=== PATIENT | male | born 1975 ===

== ENCOUNTER 2020-04-23 14:22 | Emergency (ER) | payer SELFPAY ==
[2020-04-23] MEDS ORDERED: Ketorolac Tromethamine 30 MG/ML VIAL ONE (16:46)
[2020-04-23] MEDS ORDERED: Metoclopramide HCl 10 MG TAB ONE (16:46)
[2020-04-23] MEDS ORDERED: diphenhydrAMINE 25 MG CAP ONE (16:46)
--- NOTE | 2020-04-23 17:24 | CT ---
CT OF BRAIN PERFORMED WITHOUT CONTRAST ENHANCEMENT: 04/23/20 HISTORY: Right sided headache x3 months. The ventricular and cisternal system is within normal limits. There is no signs of intracerebral hemo rrhage or extra-axial fluid collections. Mastoid air cells are clear. Partial visualization of some d eformity along the right orbit may represent an old orbital wall fracture. IMPRESSION: 1. No acute intracranial abnormalities. 2. Probable old orbital floor fracture on the right. POS: KEN
== END 2020-04-23 17:14 | disposition home or self-care (01) ==
LOC: ERS 14:22
DX: R51.9 Headache, unspecified (principal); R29.700 NIHSS score 0; Z87.891 Personal history of nicotine dependence
CPT/HCPCS: 70450; 96372; J1885; Q0163